=== PATIENT | female | born 1990 | race Caucasian/White ===

== ENCOUNTER 2016-09-27 12:44 | Observation (INO) | payer OTHER ==
[2016-09-27 13:11] VITALS: BP 125/80; PULSE 86
== END 2016-09-27 14:25 | disposition home or self-care (01) ==
LOC: OB 12:44
PROVIDERS: ADMIT Family Medicine; ATTEND Family Medicine
DX: Z34.03 Encounter for supervision of normal first pregnancy, third trimester (principal)
CPT/HCPCS: 80307; G0378

== ENCOUNTER 2016-10-02 17:29 | Observation (INO) | payer OTHER ==
[2016-10-02 18:18] VITALS: BP 133/78; PULSE 74
== END 2016-10-02 18:30 | disposition home or self-care (01) ==
LOC: OB 17:29
PROVIDERS: ADMIT Family Medicine; ATTEND Family Medicine
DX: Z34.03 Encounter for supervision of normal first pregnancy, third trimester (principal)
CPT/HCPCS: 59025; G0378

== ENCOUNTER 2016-10-04 21:23 | Observation (INO) | payer OTHER ==
[2016-10-04 22:31] LABS: Collection Type CLEAN CATCH
[2016-10-04 22:32] LABS: COMPLETE URINE MICROSCOPIC? NO
[2016-10-05 01:04] VITALS: BP 125/71; PULSE 77
== END 2016-10-05 00:30 | disposition home or self-care (01) ==
LOC: OB 21:23
PROVIDERS: ADMIT Family Medicine; ATTEND Family Medicine
DX: Z34.03 Encounter for supervision of normal first pregnancy, third trimester (principal)
CPT/HCPCS: 80307; 81002; G0378

== ENCOUNTER 2016-10-09 03:55 | Inpatient (IN) | payer OTHER ==
[2016-10-09] MEDS ORDERED: BRETHINE 1 MG/ML SQ PRN (18:58)
[2016-10-09] MEDS ORDERED: XYLOCAINE 1% HCL 20 ML MDV IJ PRN (18:58)
[2016-10-09] MEDS ORDERED: PITOCIN 30 UNITS/ LR 500 ML 500 ML IV SCH (19:00)
[2016-10-09] MEDS ORDERED: Cervidil 10 MG VAG SCH (20:00)
[2016-10-09 20:05] LABS: BASOPHIL % 0.3 % (0.0-0.4); Eosinophil % 0.9 % (0.00-5.0); Granulocytes % 70.7 % (36.0-66.0); Lymphocytes % 19.2 % (24.0-44.0); Mean Cell Volume 90.6 fl (78-100); Mean Corpuscular Hemoglobin 30.1 pg (26-32); Mean Platelet Volume 11.5 fl (6-9.5); Monocytes % 8.9 % (0.0-12.0); Platelet Count 198 K/mm3 (150-450); Red Blood Count 3.85 M/mm3 (4.1-5.4); Red Cell Distribution Width 13.4 % (11.5-14.0); White Blood Count 11.7 K/mm3 (4.0-10.5)
[2016-10-10] MEDS ORDERED: Lactated Ringers 1,000 ML IV ONE ×2 (04:29→06:23)
[2016-10-10] MEDS ORDERED: OB EPIDURAL NAROPIN/SUFENTANIL IN NACL EPIDURAL PRN (04:29)
[2016-10-10] MEDS ORDERED: Ephedrine Sulfate 50 MG/ML IV PRN (04:29)
[2016-10-10] MEDS ORDERED: BICITRA 30 ML CUP PO SCH (06:30)
[2016-10-10] MEDS ORDERED: Pepcid 20 MG VIAL IV SCH (06:30)
[2016-10-10] MEDS ORDERED: Reglan 10 MG/2 ML IV SCH (06:30)
[2016-10-10 06:43] LABS: Mean Cell Volume 90.6 fl (78-100); Mean Corpuscular Hemoglobin 29.8 pg (26-32); Mean Platelet Volume 11.2 fl (6-9.5); Platelet Count 188 K/mm3 (150-450); Red Blood Count 3.72 M/mm3 (4.1-5.4); Red Cell Distribution Width 13.6 % (11.5-14.0); White Blood Count 15.9 K/mm3 (4.0-10.5)
[2016-10-10 07:00] LABS: INR 0.98 (0.8-3.0)
[2016-10-10 07:03] LABS: PTT 27.6 SECONDS (25.3-37.0)
[2016-10-10] MEDS ORDERED: CLINDAMYCIN-D5W 600 MG/50 ML*** 50 ML IV ONE (07:10)
[2016-10-10] MEDS ORDERED: LANSINOH 40 GM TOP PRN (07:51)
[2016-10-10] MEDS ORDERED: Mylicon 80MG PO PRN (07:51)
[2016-10-10] MEDS ORDERED: TUCKS TP PRN (07:51)
[2016-10-10] MEDS ORDERED: Anucort-HC SUPPOSITORY PR PRN (07:51)
[2016-10-10] MEDS ORDERED: Dulcolax 10 MG SUPP PR PRN (07:51)
[2016-10-10] MEDS ORDERED: CORTISONE 1% CREAM TP PRN (07:51)
[2016-10-10] MEDS ORDERED: Dermoplast Spray TP PRN (07:51)
[2016-10-10] MEDS ORDERED: DEMEROL 50 MG IV PRN (07:55)
[2016-10-10] MEDS ORDERED: PERCOCET TABLET 5/325MG PO PRN (07:55)
[2016-10-10] MEDS ORDERED: CLARITIN 10 MG PO PRN (07:55)
[2016-10-10] MEDS ORDERED: MORPHINE SULFATE 2 MG INJ IV PRN (07:55)
[2016-10-10] MEDS ORDERED: BENADRYL 50 MG/ML IV PRN (07:55)
[2016-10-10] MEDS ORDERED: Zofran 4 MG/2 ML VIAL IV PRN (07:55)
[2016-10-10] MEDS ORDERED: Narcan 0.4 MG/ML IV PRN (07:55)
[2016-10-10] MEDS ORDERED: Nubain 10 MG/ML IV PRN (07:55)
[2016-10-10] MEDS ORDERED: HOLD NARCOTIC ANALGESICS AND SEDATIVES X24 HR MC PRN (07:55)
[2016-10-10] MEDS ORDERED: Pitocin 10 UNITS/ML IV ONE (08:00)
[2016-10-10] MEDS ORDERED: Naropin 0.5% 30 ML VIAL IJ ONE (08:00)
[2016-10-10] MEDS ORDERED: BREVIBLOC 100 MG/10 ML IV ONE (08:00)
[2016-10-10] MEDS ORDERED: Astramorph-Pf 5 MG/10 ML IV ONE (08:00)
[2016-10-10] MEDS ORDERED: XYLOCAINE 2%/Epi 1:200000 20ML VIAL MPF IJ ONE (08:00)
[2016-10-10] MEDS ORDERED: Dextrose 5%-Lr IV Solution 1000 ML 1,000 ML IV SCH (08:00)
[2016-10-10] MEDS ORDERED: DEMEROL 50 MG ONE (08:01)
--- NOTE | 2016-10-10 08:03 | OP ---
SURGERY DATE/TIME: 10/10/2016 0654 PREOPERATIVE DIAGNOSES: 1) Nonreassuring heart rate tracing. 2) Term intrauterine . POSTOPERATIVE DIAGNOSES: 1) Nonreassuring heart rate tracing. 2) Term intrauterine , delivered. PROCEDURE: Primary lower uterine segment transverse incision section. SURGEON: Dr. Otoole. ANESTHESIA: Epidural. HISTORY: The patient is a 25 year old white female who is presenting now. She had induction with Cervidil and after rupture of membranes the patient was noted to have decelerations with contractions that were concerning due to their deepness and their frequency with which she was having them. She had gotten 7 cm of dilation and primary care physician, Dr. Deonna Javier, decided that the patient would benefit from section delivery as she has concern for the baby's tolerance for continuing the delivery process. The patient was appraised of the risks of the procedure including the risk of wound infection, possible bleeding requiring transfusion, and possible injury to any intra-abdominal organs. The patient verbalized her understanding and desired to have the procedure performed. DESCRIPTION OF PROCEDURE: The patient was prepped and draped in supine position. After adequate regional anesthesia was confirmed, a Pfannenstiel incision was made and carried down sharply through the fascia which was divided in a horizontal fashion. The rectus muscles were then bluntly and sharply dissected away from the overlying fascia and bluntly retracted laterally. The peritoneal cavity was then entered. A bladder flap was developed and the bladder was retracted inferiorly. The uterus was scored in a horizontal fashion and entered in the midline. The wound is extended using bandage scissors. A white male infant was delivered from the abdominal wound from an occiput posterior position. The cord was doubly clamped and divided between the clamps and the baby was handed off for further care. The placenta was then manually removed from the uterus and appeared to be normal. The uterus was then exteriorized and wrapped in moist gauze. The wound edges were grasped with Griffin clamps and the wound was then reapproximated using 1-0 chromic suture in a running, interlocking fashion. The cul-de-sac area was then swabbed clear of blood and amniotic fluid and the uterus was replaced in the abdominal cavity. Paracolic gutters were then also swabbed clear of blood and amniotic fluid. The peritoneum was then repaired using 3-0 chromic suture in a running fashion. The fascia was repaired using 0 Vicryl suture in a running fashion. The skin edges were then reapproximated using 4-0 Vicryl suture in a subcuticular fashion and reinforced with Steri-Strips. The sponge, needle and instrument count was reported as correct at the end of the procedure. The patient did receive 600 mg of Cleocin intraoperatively after the cord was clamped. Estimated blood loss was 300 cc. The patient was taken back to the recovery room in good condition.
[2016-10-10] MEDS ORDERED: PITOCIN 30 UNITS/ LR 500 ML 500 ML IV SCH (09:00)
[2016-10-10] MEDS ORDERED: Lactated Ringers 1,000 ML IV SCH (09:00)
[2016-10-10] MEDS ORDERED: Adacel Vial IM ONE (10:00)
[2016-10-10] MEDS: FERREX 150 PO SCH (10:15)
[2016-10-10] MEDS: Colace 100 MG PO SCH ×2 (10:15→21:25)
[2016-10-10] MEDS: MOTRIN 400 MG PO PRN (21:24)
[2016-10-11 04:59] VITALS: O2SAT 99
[2016-10-11 05:38] LABS: Mean Cell Volume 91.9 fl (78-100); Mean Platelet Volume 10.9 fl (6-9.5); Platelet Count 166 K/mm3 (150-450); Red Cell Distribution Width 13.8 % (11.5-14.0); White Blood Count 11.6 K/mm3 (4.0-10.5)
[2016-10-11] MEDS ORDERED: Phenergan 25 MG INJ IM PRN (07:30)
[2016-10-11] MEDS ORDERED: Restoril 15 MG PO PRN (07:30)
[2016-10-11] MEDS ORDERED: Ambien 10 MG PO PRN (07:30)
[2016-10-11] MEDS ORDERED: Tylenol #3 Tablet PO PRN (07:30)
[2016-10-11] MEDS ORDERED: DEMEROL 75 MG IM PRN (07:30)
[2016-10-11] MEDS: Colace 100 MG PO SCH ×2 (10:36→23:14)
[2016-10-11] MEDS: FERREX 150 PO SCH (10:36)
[2016-10-11] MEDS: MOTRIN 400 MG PO PRN ×2 (10:36→18:45)
[2016-10-11] MEDS: TYLENOL EXTRA STRENGTH 500 MG PO PRN (15:17)
[2016-10-12 04:16] VITALS: BP 132/75; PULSE 90
[2016-10-12] MEDS: MOTRIN 400 MG PO PRN (06:26)
--- NOTE | 2016-10-12 08:34 | PCM.DS ---
Discharge Summary Date of Admission: 10/10/16 03:55 Admitting Physician: RAUL JOSEPH Consults: Consults on Case 10/10/16 06:20 Notify Physician OF ADMISSION 10/10/16 06:23 Notify Anesthesia Provider ROUTINE Primary Care Provider: RAUL JOSEPH Allergies Allergies Penicillins Adverse Reaction (Verified 10/04/16 23:15) Hospital Summary - Hospital Course Hospital Course: Pt admitted at term, IOL, had c/section due to intolerance of labor (with Dr. Otoole). She has been out of bed, only taking tylenol for pain. Bottle feeding baby. No dizziness. Bleeding lessened. Will d/c home today and f/u in 1 week. - Vitals & Intake/Output Vital Signs: Vital Signs Temperature 97.8 F 10/12/16 04:00 Pulse Rate 90 10/12/16 04:00 Respiratory Rate 18 10/12/16 04:00 Blood Pressure 132/75 10/12/16 04:00 O2 Sat by Pulse Oximetry 99 10/11/16 04:00 Intake & Output: Intake & Output 10/09/16 10/10/16 10/11/16 10/12/16 11:59 11:59 11:59 11:59 Intake Total 3485 Output Total 2300 Balance 1185 Weight 81.193 kg - Lab Result Diagrams: 10/11/16 05:15 Micro Results-Entire Visit: Microbiology 10/10/16 12:03 - Preliminary Catherized NO GROWTH TO DATE Discharge Exam General Appearance: no apparent distress Neurologic Exam: alert, oriented x 3, cooperative Skin Exam: normal color, warm, dry Respiratory Exam: normal breath sounds, lungs clear, No rhonchi, No wheezing Cardiovascular Exam: normal heart sounds, tachycardia (mild, regular rhythm), No murmur Gastrointestinal/Abdomen Exam: soft, normal bowel sounds, other (fundus firm around umbilicus. wound is clean/dry/intact, steri strips in place) Extremity Exam: No pedal edema, No swelling Final Diagnosis/Problem List - Final Discharge Diagnosis/Problem (1) delivery delivered Current Visit: Yes Status: Acute Assessment & Plan: She is doing great, I will give small amount of pain meds to go home on but she may not need them. F/u in1 week. (2) Anemia Current Visit: Yes Status: Acute Assessment & Plan: Home on FeSO4 for 1-2 months. - Discharge Disposition: Home, Self-Care Condition: Stable Prescriptions: New Docusate Sodium 100 mg [Colace 100 MG] 100 mg PO BID PRN #30 capsule PRN Reason: Constipation Ferrous Sulfate 325 mg [Feosol 325 mg] 325 mg PO DAILY #30 tablet Codeine Phosphate/APAP #3 [Tylenol #3 Tablet] 1 - 2 tab PO Q4H PRN PRN # 20 tablet PRN Reason: Severe Pain Continue Vits W-Ca,Fe,FA(<1Mg) [] 1 tab PO DAILY Additional Instructions: Make an appt to see in one week. Follow up in OB dept on 10/14/16. Follow up with: RAUL JOSEPH [Primary Care Provider] - 1 Week Forms: OB Discharge Instructions
[2016-10-12] MEDS: TYLENOL EXTRA STRENGTH 500 MG PO PRN (09:16)
[2016-10-12] MEDS: Colace 100 MG PO SCH (09:16)
[2016-10-12] MEDS: FERREX 150 PO SCH (09:16)
== END 2016-10-12 09:35 | disposition home or self-care (01) | DRG 766 ==
LOC: OB 03:55 → OBSVTOIN 10-10 03:55
PROVIDERS: ADMIT Family Medicine; ATTEND Family Medicine
PROC: 10D00Z1 Extraction of Products of Conception, Low, Open Approach (ICD-10-PCS; principal; 2016-10-10)
DX: O82 Encounter for cesarean delivery without indication (principal); Z3A.39 39 weeks gestation of pregnancy; Z37.0 Single live birth; O76 Abnormality in fetal heart rate and rhythm complicating labor and delivery; D64.9 Anemia, unspecified
CPT/HCPCS: 01967; 01968; 36415; 80307; 85025; 85027; 85610; 85730; 86850; 86900; 86901; 87086; 90471; 90715; 94799; 99140; G0378; J2175; J2274; J2590; J2795; L0625; A9270-GY